=== PATIENT | female | born 1940 | race Caucasian/White ===

== ENCOUNTER → 2021-04-06 | Outpatient (CLI) | payer OTHER ==
[~2021-04-06] MED LIST: ADULT LOW DOSE81 MG PO; AUGMENTIN 875875 MG PO; AZITHROMYCIN 2250 MG; BENICAR HCT 201 EACH PO; BYSTOLIC10 MG PO; CALTRATE 600 +1 EACH; CENTRUM SILVER1 EAC4 PO; CLOBETASOL EMOL15 GM TP; CLOBETASOL PRO0.5 GM MC; DEXILANT60 MG PO; EVISTA PO; FISH OIL 1,0001 EAC5; FISH OIL 1,2001 EACH PO; FLEXERIL PO; FLONASE 0.05%50 MCG NASAL; FOLIC ACID 40400 MCG PO; GARLIC OIL1 EAC1; GARLIC OIL1 EACH PO; HYDROCHLOROTH12.5 M1 PO; HYDROCHLOROTHIA25 M1 PO; HYDROCODON-ACE1 EAC5; IBUPROFEN 800800 M1 PO; ISOMETHEPT-DIC1 EACH PO; LEVOTHYROXINE0.05 MG PO; NEURONTIN 300300 M1 PO; PAXIL20 MG PO; PHENERGAN 25 MG25 M1 PO; PREMARIN VAGI42.5 G1 TOP; SINGULAIR 10 MG10 M1 PO; VENTOLIN17 GM INH; VICODIN 5-5001 EACH PO; VITAMIN B-12500 MCG PO; VITAMIN B-125000 MC1 PO; VITAMIN D1000 UNI1; VITAMIN D2000 UNIT PO; ZOCOR80 MG PO
== END ==
LOC: M.MRI 03-28 16:20
DX: S22.088A Other fracture of T11-T12 vertebra, initial encounter for closed fracture (principal); S22.038A Other fracture of third thoracic vertebra, initial encounter for closed fracture; M47.816 Spondylosis without myelopathy or radiculopathy, lumbar region; M48.062 Spinal stenosis, lumbar region with neurogenic claudication; X58.XXXA Exposure to other specified factors, initial encounter; Y93.89 Activity, other specified; Y92.89 Other specified places as the place of occurrence of the external cause; Y99.8 Other external cause status

== ENCOUNTER 2021-04-21 01:41 | Emergency (ER) | payer OTHER ==
[~2021-04-21] VITALS: Ht 162.6 cm; Wt 76.2 kg
[2021-04-21 02:35] LABS: HEMATOCRIT 35.4 % (37.0-47.0); HEMOGLOBIN 11.6 gm/dL (12.0-15.0); MCH 30.2 pg (26.0-34.0); MCHC 32.9 g/dL (28.0-37.0); MPV 8.9 fl. (7.2-11.1); RBC 3.85 mil/uL (4.20-5.00); RDW-CV 13.7 % (10.5-14.5); WBC 11.6 thou/uL (4.0-11.0)
[2021-04-21 02:37] LABS: CALCIUM 8.7 mg/dL (8.5-10.1); POTASSIUM 3.6 mmol/L (3.5-5.1)
[2021-04-21 02:42] LABS: ALBUMIN 2.9 g/dL (3.4-5.0); TOTAL BILIRUBIN 0.6 mg/dL (<0.1-1.0); TOTAL PROTEIN 7.1 g/dL (6.4-8.2)
[2021-04-21 03:21] LABS: URINE BILIRUBIN NEGATIVE (Negative); URINE BLOOD NEGATIVE (Negative); URINE CLARITY CLEAR; URINE COLOR YELLOW; URINE GLUCOSE-RANDOM NEGATIVE (Negative); URINE KETONES NEGATIVE (Negative); URINE LEUKOCYTES-REFLEX TRACE (Negative); URINE NITRITE-REFLEX NEGATIVE (Negative); URINE PROTEIN NEGATIVE (Negative); URINE SPECIFIC GRAVITY 1.015 (1.005-1.030); URINE UROBILINOGEN 0.2 E.U./dl (0.2-1.0)
[2021-04-21 04:47] VITALS: BP 144/80
[2021-04-21 05:14] LABS: HYALINE CASTS 0-3 Few /LPF (None Seen); SQUAMOUS NONE SEEN /LPF (0-3)
[2021-04-21 05:15] LABS: BACTERIA-REFLEX None Seen /HPF (None Seen); CRYSTALS None Seen /LPF (None Seen); URINE RBC None Seen /HPF (0-2); URINE WBC-REFLEX 6-15 Few /HPF (0-5)
--- NOTE | 2021-04-22 11:07 | EKG ---
[place] [address] ELECTROCARDIOGRAM REPORT Name: CHICO RAYGOZA Room: [facility]#: [id number] Admission: 04/21/21 Attend Phys: Discharge: 04/21/21 Date of : 36 Date of Service: 04/21/21 0151 Report #: [id number] THIS REPORT FOR: //name// [facility] ED Test Date: 2021-04-21 Test Time: 01:51:37 Pat Name: CHICO RAYGOZA Department: Room: Gender: F Pipe Changer: YONATHAN : 1940 Requested By: Kiah Naqvi Order Number: [id number] MD: Modesto Vance Measurements Intervals [place] Rate: 74 P: 36 PA: 191 QRS: -40 QRSD: 91 T: 27 QT: 410 QTc: 455 Interpretive Statements Sinus rhythm RSR' in V1 or V2, probably normal variant Inferior infarct, old Compared to ECG 08/26/2014 13:32:26 RSR' in V1 or V2 now present Myocardial infarct finding now present Electronically Signed On 04-22-2021 11:06:56 RESIDENTIAL CARE OFFICER by Modesto Vance [email or web address] <ELECTRONICALLY SIGNED> By: Tamiko Vance MD, FACC 04/22/21 1106 0 0 Tamiko Vance MD, FACC /EPI
== END 2021-04-21 04:47 | disposition home or self-care (01) ==
LOC: M.ERS 01:41
PROVIDERS: Personal Emergency Response Attendant
DX: S00.03XA Contusion of scalp, initial encounter (principal); R53.1 Weakness; E78.00 Pure hypercholesterolemia, unspecified; K21.9 Gastro-esophageal reflux disease without esophagitis; Z79.82 Long term (current) use of aspirin; Z79.899 Other long term (current) drug therapy; Z88.2 Allergy status to sulfonamides; Z88.8 Allergy status to other drugs, medicaments and biological substances; W19.XXXA Unspecified fall, initial encounter; Y93.89 Activity, other specified; Y92.89 Other specified places as the place of occurrence of the external cause; Y99.8 Other external cause status

== ENCOUNTER 2021-04-23 12:30 | Emergency (ER) | payer OTHER ==
[~2021-04-23] VITALS: Ht 170.2 cm; Wt 75.3 kg
[2021-04-23] MEDS ORDERED: NORCO5 PO (15:48)
[2021-04-23 16:17] VITALS: BP 131/70
== END 2021-04-23 16:36 | disposition home or self-care (01) ==
LOC: M.ERS 12:30
DX: S22.080A Wedge compression fracture of T11-T12 vertebra, initial encounter for closed fracture (principal); G89.29 Other chronic pain; M54.6 Pain in thoracic spine; E78.00 Pure hypercholesterolemia, unspecified; K21.9 Gastro-esophageal reflux disease without esophagitis; Z79.899 Other long term (current) drug therapy; Z88.2 Allergy status to sulfonamides; Z88.8 Allergy status to other drugs, medicaments and biological substances; X58.XXXA Exposure to other specified factors, initial encounter; Y93.89 Activity, other specified; Y92.89 Other specified places as the place of occurrence of the external cause; Y99.8 Other external cause status

== ENCOUNTER → 2021-05-03 | Outpatient (CLI) | payer OTHER ==
[~2021-05-03] MED LIST changes: +NORCO5 PO
[2021-05-03 10:25] LABS: CREATININE 1.5 mg/dL (0.6-1.3)
== END ==
LOC: M.CT 05-01 09:41 → M.LAB 09:47 → M.CT 11:00
DX: C79.51 Secondary malignant neoplasm of bone (principal); C80.1 Malignant (primary) neoplasm, unspecified; M48.54XA Collapsed vertebra, not elsewhere classified, thoracic region, initial encounter for fracture; R91.8 Other nonspecific abnormal finding of lung field; K76.89 Other specified diseases of liver; E04.1 Nontoxic single thyroid nodule

== ENCOUNTER → 2021-05-18 | Outpatient (CLI) | payer OTHER ==
[2021-05-18] VITALS (12 sets, daily range): BP systolic 118–143; BP diastolic 47–60
[~2021-05-18] VITALS: Ht 162.6 cm; Wt 76.7 kg
[~2021-05-18] MED LIST changes: -CALTRATE 600 +1 EACH; +CALTRATE-600 W1 EACH PO; -FOLIC ACID 40400 MCG PO; +FOLIC ACID0.8 M1 PO; +LEVOTHYROXINE75 MC1 PO
[2021-05-18 08:00] LABS: APTT 27.7 Seconds (25.0-31.3); INR 1.1; PROTIME 10.9 Seconds (9.20-11.50)
[2021-05-18 08:26] LABS: CALCIUM 8.7 mg/dL (8.5-10.1); CREATININE 1.7 mg/dL (0.6-1.3); POTASSIUM 3.9 mmol/L (3.5-5.1)
--- NOTE | 2021-05-23 18:06 | PATH ---
[address] [address] PATHOLOGY RPT PROCEDURE Name: INGRID RAYGOZA Room: [facility] Craft#: [id number] Admission: 05/18/21 Date of : 36 Discharge: Report #: [id number] Path Case #: [id number] [facility] Accession Number: [id number] . 01 Material submitted: . liver - LT LOBE LIVER MASS. Modifiers: left, LOBE . 01 Clinical history: . 4 X 3.1 X 2.4 CM . 02 Diagnosis: Liver (left lobe mass needle biopsy): - Metastatic poorly differentiated malignant neoplasm consistent with malignant melanoma is identified (please see comment). (KIRBY:emmie; 05/23/2021) QTP 05/23/2021 1559 Local . 02 Comment: The vast majority of this biopsy consists of sheets of epithelioid cells with somewhat smudgy nuclei, occasionally prominent nucleoli, and fine dust-like brown pigment is present focally. For this reason, we undertook a series of immunohistochemical studies to confirm this was indeed metastatic malignant melanoma versus neuroendocrine carcinoma or pulmonary carcinoma. On block A2 we find the following results: . Vimentin: Strongly positive. CK20: Negative. CK7: Negative. TTF-1: Negative. HMB-45: Strongly positive. S-100: Positive. MART-1: Strongly positive. Synaptophysin: Negative. Chromogranin: Negative. . This case is co-reviewed by Dr. Scar Vargas who agrees with the diagnosis. . (SWK:emmie; 05/23/2021) . 02 Electronically signed: . Kenan Cruz MD, Pathologist NPI- [id number] . 01 Gross description: . Received in formalin labeled "Ingrid Raygoza, liver BX" are multiple tilley-red cylindrical soft tissue cores measuring in aggregate 1.5 x 1.0 x 0.1 cm. The specimen is submitted entirely in cassettes A1-A2. ([facility]; [place] [address] PATHOLOGY RPT PROCEDURE Name: INGRID RAYGOZA [facility] [id number] Admission: 05/18/21 Date of : 36 Discharge: Report #: [id number] Path Case #: [id number] 05/19/2021) [facility] 05/19/[address] [place] [address] . Pathologist provided ICD-10: C78.7 . 02 CPT . 668909, Q51513, U98433 Specimen Comment: A courtesy copy of this report has been sent to [phone] Specimen Comment: Report sent to Performed at: 01 [facility] [address] [place] [id number] MD Tushar Mckeon MD Phone: [phone] Performed at: 02 [facility] [address] [id number] MD Kenan Cruz MD Phone: [phone]
== END | disposition home or self-care (01) ==
LOC: M.LAB 07:12 → M.ULTRA 08:30
DX: R16.0 Hepatomegaly, not elsewhere classified (principal); I10 Essential (primary) hypertension; E78.00 Pure hypercholesterolemia, unspecified; E78.5 Hyperlipidemia, unspecified; K21.9 Gastro-esophageal reflux disease without esophagitis; E11.9 Type 2 diabetes mellitus without complications; Z85.820 Personal history of malignant melanoma of skin; Z98.890 Other specified postprocedural states; Z79.899 Other long term (current) drug therapy